=== PATIENT | female | born 1985 | race Caucasian/White ===

== ENCOUNTER 2017-04-09 17:38 | Emergency (ER) | payer OTHER ==
[~2017-04-09] VITALS: Ht 154.9 cm; Wt 113.4 kg
[~2017-04-09 17:38] MED LIST: NADOLOL; NORCO 5-325 TA1 EACH PO; ZOLOFT25 MG
[2017-04-09] MEDS ORDERED: AMOX TR-K CLV1 EAC1 PO (17:56)
[2017-04-09] MEDS ORDERED: ESCITALOPRAM OX10 MG PO (17:57)
[2017-04-09] MEDS ORDERED: METHYLPREDNISOLO4 M1 PO (18:10)
[2017-04-09] MEDS ORDERED: ZOFRAN ODT4 MG PO (18:10)
[2017-04-09] MEDS ORDERED: VENTOLIN HFA18 GM INH (18:10)
== END 2017-04-09 18:30 | disposition home or self-care (01) ==
LOC: ED 17:38
DX: R06.02 Shortness of breath (principal); F32.9 Major depressive disorder, single episode, unspecified; Z90.49 Acquired absence of other specified parts of digestive tract; Z88.0 Allergy status to penicillin; Z88.8 Allergy status to other drugs, medicaments and biological substances; Z79.899 Other long term (current) drug therapy
CPT/HCPCS: 94640; 99283

== ENCOUNTER 2018-12-15 19:18 | Emergency (ER) | payer OTHER ==
[~2018-12-15] VITALS: Ht 154.9 cm; Wt 108.9 kg
[~2018-12-15 19:18] MED LIST changes: +AMOX TR-K CLV1 EAC1 PO; +ESCITALOPRAM OX10 MG PO; +METHYLPREDNISOLO4 M1 PO; +VENTOLIN HFA18 GM INH; +ZOFRAN ODT4 MG PO
[2018-12-15] MEDS ORDERED: PROVENTIL HFA6.7 GM INH (20:34)
--- NOTE | 2018-12-16 22:24 | EKG ---
[facility] [address] [facility] [place] [address] Signed Normal sinus rhythm Normal ECG No previous ECGs available Confirmed by JOSE TUBBS MD ([id number] on 12/16/2018 10:23:49 PM Electronically Signed By: JOSE TUBBS MD 12/16/18 2224 PATIENT NAME: ANA JONES Electrocardiogram DATE OF : 81 PHYSICIAN: JOSE TUBBS MD REPORT #: [id number] REPORT IS CONFIDENTIAL AND NOT TO BE RELEASED WITHOUT AUTHORIZATION
== END 2018-12-15 20:44 | disposition home or self-care (01) ==
LOC: ED 19:18
DX: J20.9 Acute bronchitis, unspecified (principal); R55 Syncope and collapse; Z88.0 Allergy status to penicillin; Z88.8 Allergy status to other drugs, medicaments and biological substances
CPT/HCPCS: 71046; 80053; 84703; 85025; 93005; 93010; 99284-25